=== PATIENT | female | born 1965 | race Caucasian/White ===

== ENCOUNTER 2024-03-18 21:19 | Inpatient (IN) | payer BC ==
[~2024-03-18 21:19] MED LIST: ALBUTEROL NEBULIZED 2.5 MG/3 ML INHALATION ONE; IPRATROPIUM 0.5 MG/2.5 ML NEBU INHALATION ONE; SODIUM CHLORIDE 0.9% 1,000 ML BAG ONE
[2024-03-19] MEDS ORDERED: methylPREDNISolone SOD SUCCI 125 MG/2 ML VIAL ONE ×5 (00:25→23:52)
[2024-03-19] MEDS ORDERED: SYMBICORT 160-4.5 MCG INHALER INHALATION ONE ×2 (08:00→23:59)
[2024-03-19] MEDS ORDERED: IPRATROPIUM-ALBUTEROL 3 ML NEB ONE ×2 (08:00→23:59)
[2024-03-19] MEDS ORDERED: cefTRIAXone 2 GM VIAL ONE (10:02)
[2024-03-19] MEDS ORDERED: NICOTINE 21MG/24HR PATCH TRANSDERM ONE (10:03)
[2024-03-19] MEDS ORDERED: SODIUM CHLORIDE 0.9% 50 ML BAG ONE (23:59)
[2024-03-19] MEDS ORDERED: SODIUM CHLORIDE 0.9% 1,000 ML BAG ONE (23:59)
[2024-03-20] MEDS ORDERED: methylPREDNISolone SOD SUCCI 125 MG/2 ML VIAL ONE ×4 (06:14→23:53)
[2024-03-20] MEDS ORDERED: SODIUM CHLORIDE 0.9% 50 ML BAG ONE (08:00)
[2024-03-20] MEDS ORDERED: IPRATROPIUM-ALBUTEROL 3 ML NEB ONE ×2 (08:00→23:59)
[2024-03-20] MEDS ORDERED: SYMBICORT 160-4.5 MCG INHALER INHALATION ONE (08:00)
[2024-03-20] MEDS ORDERED: cefTRIAXone 2 GM VIAL ONE (08:36)
[2024-03-20] MEDS ORDERED: NICOTINE 21MG/24HR PATCH TRANSDERM ONE (08:47)
[2024-03-20] MEDS ORDERED: ENOXAPARIN 40 MG/0.4 ML SYRINGE SQ ONE (13:41)
[2024-03-20] MEDS ORDERED: FAMOTIDINE 20 MG TAB ONE (22:20)
[2024-03-21] MEDS ORDERED: methylPREDNISolone SOD SUCCI 125 MG/2 ML VIAL ONE ×2 (07:00→11:34)
[2024-03-21] MEDS ORDERED: IPRATROPIUM-ALBUTEROL 3 ML NEB ONE ×2 (08:00→14:00)
[2024-03-21] MEDS ORDERED: SODIUM CHLORIDE 0.9% 50 ML BAG ONE (08:00)
[2024-03-21] MEDS ORDERED: cefTRIAXone 2 GM VIAL ONE (08:26)
[2024-03-21] MEDS ORDERED: NICOTINE 21MG/24HR PATCH TRANSDERM ONE (08:26)
[2024-03-21] MEDS ORDERED: FAMOTIDINE 20 MG TAB ONE (08:27)
[2024-03-21] MEDS ORDERED: ENOXAPARIN 40 MG/0.4 ML SYRINGE SQ ONE (08:27)
--- NOTE | 2024-04-23 10:01 | XR ---
Patient Darlene Hairston ID [id number] Order # EXAMINATION TYPE: XR chest 2V DATE OF EXAM: 03/18/2024 COMPARISON: No comparison available on downtime PACS. INDICATION: Short of breath x2 days TECHNIQUE: Frontal and lateral views of the chest are obtained. FINDINGS: The heart size is normal. The pulmonary vasculature is normal. The lungs are clear. Hyperinflation flattening the diaphragms compatible with COPD IMPRESSION: 1. No acute pulmonary process. 2. COPD
== END 2024-03-21 15:49 | disposition home or self-care (01) | DRG 190 ==
LOC: 4SSUR 21:19
PROVIDERS: ADMIT Hospitalist; ATTEND Hospitalist
DX: J44.1 Chronic obstructive pulmonary disease with (acute) exacerbation (principal); J96.01 Acute respiratory failure with hypoxia; G35 Multiple sclerosis; R19.7 Diarrhea, unspecified; F17.210 Nicotine dependence, cigarettes, uncomplicated; Z71.6 Tobacco abuse counseling; Z11.52 Encounter for screening for COVID-19
CPT/HCPCS: 71046; 80053; 83880; 84484; 85025; 87040; 87636; 93005; 94640; 94760; 99285

== ENCOUNTER → 2024-08-25 | Outpatient (CLI) | payer BC ==
--- NOTE | 2024-08-25 18:17 | CTL ---
EXAMINATION TYPE: CT Low Dose Lung DATE OF EXAM: 08/25/2024 6:06 PM COMPARISON: plain film 03/18/2024 CLINICAL INDICATION: Female, 58 years old with history of Z12.2 ENCNTR SCREEN FOR MALIGNANT NEOPLASM OF RESP; smoker, history of tobacco use. TECHNIQUE: Multiple axial non-contrast scans were obtained from approximately the lung apices through the upper abdomen. Coronal and sagittal reformatted images were obtained. Low dose technique was uti lized. MIP were created on a separate workstation and submitted for review. CT DLP: 96.9 mGycm, Automated exposure control for dose reduction was used. CT Contrast: Contrast used: None Oral contrast used: None FINDINGS: Lack of intravenous contrast and low dose technique limits the evaluation of the vascular and soft ti ssue structures. LUNGS: No evidence of pulmonary fibrosis. No evidence of focal consolidation, pneumothorax or pleural effusion. Centrilobular emphysema changes. Nodules: RUL: None. RML: None. RLL: None. MAILE: 4 mm series 3 image 79 LLL: mass measuring 39 x 20 x 33 mm. AIRWAY: Patent and unremarkable. HEART: Size within normal limits. MEDIASTINUM: No gross evidence of adenopathy. VASCULATURE: No aortic aneurysm. MUSCULOSKELETAL: No acute osseous abnormalities SOFT TISSUES/LYMPH NODES: Unremarkable. LOWER NECK: No significant findings. UPPER ABDOMEN: The gallbladder surgically absent. Diffuse low-attenuation to the liver parenchyma. IMPRESSION: 1. Left lower lobe mass measuring up to 39 mm concerning for malignancy until proven otherwise. No gr eater than 1.0 cm in short axis lymph node in the mediastinum identified. 2. Mild emphysema. 3. Hepatic steatosis. CT LUNG RAD AND CT CHEST RECOMMENDATION: Lung-Rad 4B or 4X Very Suspicious: Follow-up Chest CT with o r without contrast or PET/CT and/or tissue sampling. S Modifier (other clinically significant findings): None Recommend smoking cessation (if current smoker), or continuation of smoking cessation (if prior smoke r). Annual screening for lung cancer with low-dose computed tomography is recommended in adults ages 55 to 77 years who have a 30 pack-year smoking history and currently smoke or have quit within the pa st 15 years. Screening should be discontinued once a person has not smoked for 15 years or develops a health problem that substantially limits life expectancy or the ability or willingness to have curat tahir lung surgery. Lung rads 2021 [email or web address] [facility], , 08/25/2024 6:15 PM
== END | disposition home or self-care (01) ==
LOC: RADCTMAIN 17:34
PROVIDERS: ATTEND Internal Medicine Critical Care Medicine
DX: Z12.2 Encounter for screening for malignant neoplasm of respiratory organs (principal); F17.210 Nicotine dependence, cigarettes, uncomplicated; J43.9 Emphysema, unspecified; K76.0 Fatty (change of) liver, not elsewhere classified; R91.8 Other nonspecific abnormal finding of lung field
CPT/HCPCS: 71271

== ENCOUNTER → 2024-09-05 | Outpatient (CLI) | payer BC ==
--- NOTE | 2024-09-07 15:24 | PE ---
EXAMINATION TYPE: PET CT fusion skull to thigh DATE OF EXAM: 09/05/2024 COMPARISON: CT chest 08/25/2024 Prior PET/CT: No prior PET/CT at this location. CLINICAL INDICATION: Female, 59 years old with history of R91.8 Lung mass, TECHNIQUE: Following the intravenous administration of 12.32 mCi of F-18 FDG, whole body images are performed from the skull base to the midthigh. Images are reviewed on the computer in the coronal, a xial, and sagittal planes. Reconstructed rotating images are created on independent workstation and reviewed on the computer. A localization and attenuation correction CT is performed in conjunction with the PET scan. DLP: 78.73 mGycm SCAN: Initial Blood glucose: 96 mg/dL Average Mediastinum SUV: 1.74 Average Liver SUV: 1.86 FINDINGS: NECK: Appears to be some supraclavicular adenopathy with mild uptake, example image 42. Medial right region measures 3.93 more lateral right supraclavicular region measures 3.38. On the left supraclavi cular region this measures 2.41. There is a posterior focus of radiotracer present measuring 4.06. THORAX: There is a large focus of radiotracer in left infrahilar region with an SUV of 19.36 suspicio us for primary neoplasm ABDOMEN: No abnormal uptake PELVIS: There is a focus of radiotracer anterior to the left hip, 29, SUV 6.64 OSSEOUS STRUCTURES: No suspicious uptake. Musculature: There is some mild paraspinal muscular uptake. Subscapularis muscular uptake is also pre sent. Some left gluteal and distal left psoas uptake is present LOCALIZATION CT: There may be some mild fatty infiltration liver. Vascular calcifications within the aorta. A left infrahilar mass remains present COMPARISON: No significant interval change IMPRESSION: 1. Left hilar mass with marked uptake suspicious for primary neoplasm. 2. Some supraclavicular adenopathy may be present bilaterally. 3. There may be a small focus of radiotracer anterior to the left hip. Metastatic disease is not excl uded. This could be some focal uptake within the musculature. [facility], , 09/07/2024 3:22 PM
== END | disposition home or self-care (01) ==
LOC: RADPETMAIN 07:49
PROVIDERS: ATTEND Internal Medicine Critical Care Medicine
DX: R91.8 Other nonspecific abnormal finding of lung field (principal)
CPT/HCPCS: 78815; A9552

== ENCOUNTER 2024-10-09 10:41 | Day surgery (SDC) | payer BC ==
[2024-10-08 10:21] VITALS: BMI 33.0
[~2024-10-09 10:41] MED LIST changes: -ALBUTEROL NEBULIZED 2.5 MG/3 ML INHALATION ONE; +HYDROmorphone 0.5 MG/0.5 ML SYRINGE IVP PRN; -IPRATROPIUM 0.5 MG/2.5 ML NEBU INHALATION ONE; +LACTATED RINGERS 1,000 ML IV SCH; +MIDAZOLAM 2 MG/2 ML VIAL IV PRN; -SODIUM CHLORIDE 0.9% 1,000 ML BAG ONE; +fentaNYL (PF) 50 MCG/ML 2 ML AMP IVP PRN
[2024-10-09 11:57] VITALS: TEMP 97.2
[2024-10-09] MEDS: LACTATED RINGERS 1,000 ML IV SCH (11:57)
[2024-10-09] MEDS: LIDOCAINE 1% (10MG/ML) FOR IV START INTRADERMA PRN (11:58)
[2024-10-09] MEDS: IV FLUID CONTINUATION 1,000 ML IV ONE (11:58)
[2024-10-09] MEDS: DEXAMETHASONE SOD PHOSPHATE 4 MG/ML 1 ML VIAL IV ONE (11:58)
[2024-10-09] MEDS: ONDANSETRON 4 MG/2 ML VIAL IVP ONE (11:58)
--- NOTE | 2024-10-09 12:03 | CT ---
EXAMINATION TYPE: CT Chest wo ION protocol DATE OF EXAM: 10/09/2024 11:16 AM COMPARISON: None. CLINICAL INDICATION: Female, 59 years old with history of R91.8 ABN FINDING, pre bronchial navigation TECHNIQUE: Axial images were obtained at 1 mm thick sections. Reconstructed images are reviewed on [employer] computer in the coronal plane. Contrast used: mL of , (none if empty). This limits vascular evaluation. Oral contrast used: (none if empty) CT DLP: 659.9 mGycm, Automated exposure control for dose reduction was used. FINDINGS: Portion of the thyroid visualized is normal. Emphysematous changes are present. There is a left infrahilar lobular mass measuring 5.1 x 3.1 cm. There is an area of increased density within the anterior lingula. This may have some pleural retract ion. This area measures 1.3 cm. Series 4 image 176. No enlarged mediastinal or hilar adenopathy is evident. The ascending aorta diameter at the level o f the main pulmonary artery is 2.9 cm. The main pulmonary artery diameter at the bifurcation is 1. c m. Limited CT sections are obtained through the upper abdomen. Abdomen is essentially unremarkable. IMPRESSION: 1. Lobular left infrahilar mass. 2. Small density could be some postobstructive atelectasis within the lingula. [facility], , 10/09/2024 12:01 PM
[2024-10-09] MEDS ORDERED: ROCURONIUM 10 MG/ML (5 ML VIAL) IV ONE (12:17)
[2024-10-09] MEDS ORDERED: GLYCOPYRROLATE 0.2 MG/ML 2 ML VIAL ONE (12:17)
[2024-10-09] MEDS ORDERED: fentaNYL (PF) 50 MCG/ML 2 ML AMP ONE (12:17)
[2024-10-09] MEDS ORDERED: LIDOCAINE 1% INJ 10MG/ML (20 ML MDV) ONE (12:17)
[2024-10-09] MEDS ORDERED: NEOSTIGMINE 1 MG/ML 10 ML VIAL ONE (12:17)
[2024-10-09] MEDS ORDERED: MIDAZOLAM 2 MG/2 ML VIAL ONE (12:17)
[2024-10-09] MEDS ORDERED: PHENYLEPHRINE-0.9% NACL SYG 1,000 MCG/10 ML SYRINGE ONE (12:17)
[2024-10-09] MEDS ORDERED: SUCCINYLCHOLINE CHLORIDE 200 MG/10 ML VIAL IV ONE (12:17)
[2024-10-09] MEDS ORDERED: PROPOFOL 10 MG/ML 20 ML VIAL IV ONE (12:17)
--- NOTE | 2024-10-09 13:13 | FL ---
Fluoroscopy INDICATION: Pain bronchoscopy FINDINGS: Fluoroscopy time: 36.3 seconds. Total dose area product (DAP) in uGy*m?, mGy*cm? (or similar): 3.4737 Images obtained: 4. Images document the Bronchoscopy IMPRESSION: 1. Documentation of fluoroscopy. [facility], , 10/09/2024 1:10 PM
--- NOTE | 2024-10-09 13:25 | P.PCN ---
Date of Procedure: 10/09/24 Operative Findings: Operative Findings: Preoperative Diagnosis: Left lower lobe pulmonary mass, 39 mm Postoperative Diagnosis: Left lower lobe pulmonary mass Endobronchial tumor, left lower lobe ,anterior segment Procedure(s) Performed: Flexible bronchoscopy Robotic-assisted bronchoscopy and addition to radial ultrasound evaluation of the left lower lobe pulmonary mass, 29 mm Robotic-assisted transbronchial needle aspirate, transbronchial biopsies, transbronchial brushing of the left lower lobe lung mass in addition to a bronchioloalveolar lavage Anesthesia: TARUNA Surgeon: Luz Marina Richards Estimated Blood Loss (ml): 0 Pathology: other Condition: stable Disposition: same day Operative Findings: A physical exam was performed. Informed consent was obtained from the patient after explaining all the risks (pneumothorax, life threatening bleeding, infection and adverse effects due to medications), benefits and alternatives to the procedure which the patient appeared to understand and so stated. The patient was connected to the monitoring devices. General anesthesia was induced and the patient was intubated by anesthesia. A final timeout was performed and the procedure confirmed by the attending staff bronchoscopist. The bronchoscope was inserted and the airway examined. Examination of the distal trachea, bilateral mainstem bronchi was within normal limits. Examination of the right- sided tube with the right upper lobe bronchus, mucous, left middle lobe bronchus and right lower lobe bronchus and the airways were patent and within normal limits. Examination of the left upper lobe was within normal limits. Examination of the left lower lobe showed an endobronchial tumor in the anterior segment of the left lower lobe bronchus. The flexible bronchoscope was removed and the robotic bronchoscope was inserted. Registration was completed. I next guided the robotic bronchoscope using the navigation system into the left lower lobe posterior segment. Once in proper position, the bronchoscope was frozen. The radial EBUS probe was placed through the bronchoscope and confirmed abnormal u/s images vs normal lung. A 23 gauge needle was placed through the working channel and under fluoroscopic guidance, we sampled the area thought to have the mass twice. The samples were evaluated by pathology and rapid on site evaluation was done and the samples were found to be adequate. We then used a cloud biopsy pattern with ultrasound confirmation for 4 additional passes with the needle. U/S evaluation was then used to reconfirm location. Forceps were next introduced through working channel and extended the appropriate distance and 2 transbronchial biopsies were performed using fluoroscopic guidance. The u/s probe was then reinserted to confirm location. When confirmed this process was repeated for a total of 8-10 transbronchial biopsies. After reassessment with EBUS, a brush was placed through the extendable working channel for 1 pass with fluoroscopic guidance. U/S evaluation was then used to confirm location. 60ml of saline was then instilled into the area of the lesion. 10 ml of effluent from the BAL was collected. The aspirate was bloody and ultimately declotted and based on that, the sample was discarded. Flex. bronchoscope was inserted and regular suctioning was done. At the completion of the procedure, no residual secretions or bloody material within the airway. The bronchoscope was removed. The patient was extubated. FINDINGS: 1.The airways appeared normal 2 Successful navigation, ultrasonographic identification, and biopsies of left lower lobe pulmonary mass 3.The the radial ultrasound view was concentric RECOMMENDATIONS: Await pathology and cytology results The referring physician will be alerted to the results when available. The patient was advised to follow up with the referring physician with the biopsy results Patient will be called with results.
[2024-10-09] MEDS: methylPREDNISolone SOD SUCCI 125 MG/2 ML VIAL IV STA (13:47)
[2024-10-09] MEDS: dexAMETHasone ORAL SOLUTION 10 MG/ML VIAL PO STA (13:50)
[2024-10-09] MEDS: IPRATROPIUM-ALBUTEROL 3 ML NEB INHALATION STA (13:52)
--- NOTE | 2024-10-09 13:52 | XR ---
EXAMINATION TYPE: XR chest 1V portable DATE OF EXAM: 10/09/2024 1:47 PM COMPARISON: 03/18/2024 CLINICAL INDICATION: Female, 59 years old with history of SOB, status post bronchoscopy TECHNIQUE: XR chest 1V portable view(s) obtained. FINDINGS: The heart size is normal. The pulmonary vasculature is normal. Mild left lower lobe infiltrate is present. Correlate for atelectasis or pneumonia IMPRESSION: 1. Mild left lower lobe infiltrate. Correlate for atelectasis or pneumonia. No pneumothorax post bron choscopy [facility], , 10/09/2024 1:49 PM
[2024-10-09 14:35] VITALS: RESP 16
[2024-10-09 14:52] VITALS: PULSE 98
[2024-10-09 15:07] VITALS: BP 110/72
== END 2024-10-09 16:32 | disposition home or self-care (01) ==
LOC: ORWHC2ENDO 10:41
PROVIDERS: ATTEND Internal Medicine Critical Care Medicine
DX: J44.9 Chronic obstructive pulmonary disease, unspecified (principal); J96.01 Acute respiratory failure with hypoxia; R59.0 Localized enlarged lymph nodes; E66.9 Obesity, unspecified; Z68.33 Body mass index [BMI] 33.0-33.9, adult; Z53.01 Procedure and treatment not carried out due to patient smoking; Z79.51 Long term (current) use of inhaled steroids; Z79.899 Other long term (current) drug therapy
CPT/HCPCS: 88108; 88305; 88342; 71045; 71250; 31628; 31629; 31624; 31623; J2250; J0330; J1100; J2710; J2405; J2003; J3010; J2704; J2371; J1596; J2919; S2900

== ENCOUNTER → 2024-11-11 | Outpatient (CLI) | payer BC ==
--- NOTE | 2024-11-11 18:55 | MR ---
EXAMINATION TYPE: MR brain wo/w con DATE OF EXAM: 11/11/2024 5:27 PM COMPARISON: None. CLINICAL INDICATION: Female, 59 years old with history of C34.90 MALIGNANT NEOPLASM OF UNSP PART OF U NSP BRO; PHH, Lung cancer, Dizziness, TECHNIQUE: Multi planar, multi sequence imaging was performed through the brain including: T1, T2, In version recovery, susceptibility weighted imaging and gradient echo imaging and Diffusion weighted im aging. The patient was then given intravenous contrast and multi planar, T1 fat-saturation images wer e obtained. IV Contrast: 8 mL Gadobutrol FINDINGS: The turner-white junctions, ventricular system, basal cisterns appear unremarkable. Prominent perivasc ular space in the left basal ganglia. Diffusion-weighted imaging shows no evidence of restricted diff usion to suggest acute/subacute infarct. Intracranial arterial flow voids are maintained. Midline str uctures show no abnormality. Scattered foci of high T2 signal intensity are seen within the periventr icular white matter. The susceptibility weighted images do not reveal any evidence for micro-hemorrha ge. After administration of gadolinium, no abnormal enhancement is seen. The bone marrow signal is within normal limits. Paranasal sinuses and mastoid air cells: Mild scattered paranasal sinus disease. Visualized orbits: Orbital contents are intact. IMPRESSION: 1. No evidence of intracranial mass, acute/subacute infarct, or abnormal enhancement. 2. Nonspecific white matter changes, likely related to small vessel ischemic disease. [facility], , 11/11/2024 6:53 PM
== END | disposition home or self-care (01) ==
LOC: RADMRIMAIN 16:04
PROVIDERS: ATTEND Internal Medicine
DX: C34.32 Malignant neoplasm of lower lobe, left bronchus or lung (principal); J44.9 Chronic obstructive pulmonary disease, unspecified; R90.82 White matter disease, unspecified
CPT/HCPCS: 70553; A9585

== ENCOUNTER → 2025-01-20 | Outpatient (CLI) | payer BC ==
[2025-01-20 13:21] LABS: African American GFR (CKD) >90 (>60 ml/min/1.73 sqM); Blood Urea Nitrogen 4 mg/dL (7-17); Non-African American GFR(CKD) >90 (>60 ml/min/1.73 sqM)
--- NOTE | 2025-01-20 14:26 | CT ---
EXAMINATION TYPE: CT ChestAbdPelvis w con DATE OF EXAM: 01/20/2025 COMPARISON: CT chest dated 10/09/2024 CLINICAL INDICATION: Female, 59 years old with history of C34.32 MALIGNANT NEOPLASM OF LOWER LOBE, LE FT BRON CT DLP: 1791 mGycm Automated exposure control for dose reduction was used. CONTRAST: CT scan of the chest, abdomen and pelvis is performed without Oral Contrast and with IV Contrast, pat ient injected with 100 mL of Isovue 300. FINDINGS: CT chest: There are moderate emphysematous changes with an upper lobe predominance. The left lower lobe infrahilar mass has decreased from 4.2 x 3.2 cm to 3.0 x 2.0 cm. There are no new lung masses or nodules. There is no pleural effusion, pleural thickening or pneumothorax. The great vessels and chest are normal there is no mediastinal, hilar or axillary adenopathy. No focal osseous lesions are seen. CT abdomen and pelvis: There is surgical absence of the gallbladder. There is no biliary ductal dilatation. There is no focal mass or organomegaly involving the liver, pancreas, spleen or adrenal glands.. There is no solid renal mass or hydronephrosis. There is no retroperitoneal adenopathy or hemorrhage in the caliber of the abdominal aorta is normal. The bowel loops are normal in caliber and there is no dilatation or obstruction. No inflammatory hernandes ges identified in the bowel wall and mesentery. There is mild diverticulosis is There is no free intr acranial air or fluid. There is no pelvic mass or adenopathy. There is no free fluid within the pelvis. No focal osseous lesions are seen. Soft tissue the abdomen and pelvis are normal. IMPRESSION: 1. Significant decrease in the left lower lobe lung mass. 2. No new abnormalities within the chest. 3. No evidence of metastatic disease within the abdomen or pelvis. [facility], , 01/20/2025 2:24 PM
== END | disposition home or self-care (01) ==
LOC: RADCTMAIN 12:12
PROVIDERS: ATTEND Internal Medicine
DX: C34.32 Malignant neoplasm of lower lobe, left bronchus or lung (principal); C34.90 Malignant neoplasm of unspecified part of unspecified bronchus or lung; J44.9 Chronic obstructive pulmonary disease, unspecified; G35 Multiple sclerosis; R91.8 Other nonspecific abnormal finding of lung field; Z71.3 Dietary counseling and surveillance
CPT/HCPCS: 82565; 84520; 71260; 74177; 36415; Q9967